=== PATIENT | female | born 2000 | race Caucasian/White ===

== ENCOUNTER 2023-02-02 05:32 | Outpatient (CLI) | payer OTHER ==
[~2023-02-02] VITALS: Ht 160 cm; Wt 81.8 kg
[2023-02-02] MEDS ORDERED: LAMO200T5 PO (11:57)
[2023-02-02] MEDS ORDERED: HYDR-700 PO (11:57)
[2023-02-02] MEDS ORDERED: SERT-414 PO (11:57)
[2023-02-09] MEDS ORDERED: IBUP-1773 PO (10:01)
[2023-02-09] MEDS ORDERED: ACHD5005 PO (10:01)
== END 2023-02-02 12:30 ==
LOC: PREOP 05:32
PROVIDERS: ATTEND Obstetrics & Gynecology
DX: Z01.818 Encounter for other preprocedural examination (principal)

== ENCOUNTER 2023-02-09 08:38 | Day surgery (SDC) | payer OTHER ==
[~2023-02-09] VITALS: Ht 160 cm; Wt 81.8 kg
[2023-02-09] VITALS (10 sets, daily range): BP systolic 110–127; BP diastolic 64–88
[~2023-02-09 08:38] MED LIST: HYDR-700 PO; LAMO200T5 PO; SERT-414 PO
[2023-02-09] MEDS ORDERED: NEOSTIGMINE (BLOXIVERZ ) 1 MG/1ML 10 ML VIAL ONE (09:19)
[2023-02-09] MEDS ORDERED: proPOfol 200 MG/20 ML (DIPRIVAN) VIAL IV ONE (09:19)
[2023-02-09] MEDS ORDERED: GLYCOPYRROLATE 0.2 MG/ML (ROBINUL) 2 ML VIAL ONE (09:19)
[2023-02-09] MEDS ORDERED: fentaNYL INJ 100 MCG/2 ML AMP ONE (09:19)
[2023-02-09] MEDS ORDERED: ROCURONIUM 50 MG/5 ML (ZEMURON) VIAL IV ONE (09:19)
[2023-02-09] MEDS ORDERED: LIDOCAINE PF 2% 5 ML (XYLOCAINE) VIAL ONE (09:19)
[2023-02-09] MEDS ORDERED: MIDAZOLAM 2 MG/2 ML (VERSED) VIAL ONE (09:19)
[2023-02-09] MEDS ORDERED: ONDANSETRON 4 MG/2 ML (SDV) Z0FRAN ONE (09:19)
[2023-02-09] MEDS ORDERED: MIDAZOLAM 2 MG/2 ML (VERSED) VIAL IV ONE (09:30)
[2023-02-09] MEDS ORDERED: METHYLENE BLUE 0.5% (PROVAYBLUE) 50 mg/10 ml vial IV ONE ×2 (09:36→10:43)
[2023-02-09] MEDS ORDERED: BUPIVACAINE 0.25% 30 ML (SENSORCAINE) VIAL ONE (09:36)
[2023-02-09 09:45] LABS: BASOPHILS # (AUTO) 0.1 10^3/uL (0.0-0.1); BASOPHILS % (AUTO) 1 % (0-10); EOSINOPHILS # (AUTO) 0.2 10^3/uL (0.0-0.3); EOSINOPHILS % (AUTO) 3 % (0-10); HEMATOCRIT 41 % (35-52); HEMOGLOBIN 13.6 g/dL (11.5-16.0); LYMPHOCYTES % (AUTO) 31 % (12-44); MEAN CORPUSCULAR HEMOGLOBIN 28 pg (25-34); MEAN CORPUSCULAR HGB CONC 33 g/dL (32-36); MEAN CORPUSCULAR VOLUME 84 fL (80-99); MEAN PLATELET VOLUME 10.7 fL (9.0-12.2); MONOCYTES # (AUTO) 0.4 10^3/uL (0.0-1.0); MONOCYTES % (AUTO) 6 % (0-12); NEUTROPHILS # (AUTO) 3.7 10^3/uL (1.8-7.8); NEUTROPHILS % (AUTO) 58 % (42-75); PLATELET COUNT 276 10^3/uL (130-400); WHITE BLOOD COUNT 6.4 10^3/uL (4.3-11.0)
[2023-02-09] MEDS: LACTATED RINGERS 1,000 ML IV PRN ×2 (09:52→10:39)
--- NOTE | 2023-02-09 09:58 | History & Physical-Surgical ---
HPO-Surgical History of Present Illness Chief Complaint: Lack of periods, painful heavy periods, CPP, Dysmenorrhea Diagnosis/Surgical Indication: SECONDARY AMEONRRHEA, CHRONIC PELVIC PAIN, DYSPAREUNIA Date of Surgery: Feb 09, 2023 Allergies and Home Medications Allergies Coded Allergies: No Known Drug Allergies (Unverified , 02/02/23) Patient Home Medication List Home Medication List Reviewed: Yes Hydroxyzine HCl (Hydroxyzine HCl) 25 Mg Tablet, 25 MG PO NEEDED, (Reported) Entered as Reported by: Tg Forde on 02/02/23 1157 Lamotrigine (Lamotrigine) 200 Mg Tablet, 200 MG PO DAILY, (Reported) Entered as Reported by: Tg Forde on 02/02/23 1157 Sertraline HCl (Sertraline HCl) 100 Mg Tablet, 100 MG PO DAILY, (Reported) Entered as Reported by: Tg Forde on 02/02/23 1157 Past Xmuxhbw-Mtuxuz-Vtsgkb Hx Patient Social History Alcohol Beverage of Choice: Other Drug of Choice: MARIJUANA 2nd Hand Smoke Exposure: Yes Recent Hopitalizations: No Immunizations Up To Date Tetanus Booster (TDap): Less than 5yrs Seasonal Allergies Seasonal Allergies: Yes Surgeries Adenoidectomy, Nose, Tonsillectomy Respiratory No Cardiovascular No Neurological No Reproductive System Sexually Transmitted Disease: No Genitourinary No Gastrointestinal No Musculoskeletal No Endocrine History of Endocrine Disorders: No HEENT History of HEENT Disorders: Yes HEENT Disorders: Tonsilitis Loss of Vision: Denies Hearing Impairment: Denies Cancer No Psychosocial History of Psychiatric Problem: Yes Behavioral Health Disorders: Anxiety, Depression Integumentary History of Skin or Integumenta: No Blood Transfusions History of Blood Disorders: No Adverse Reaction to a Blood Tr: No Exam Vital Signs Capillary Refill : Labs Laboratory Tests Test 02/09/23 09:20 Range/Units White Blood Count 6.4 4.3-11.0 10^3/uL Red Blood Count 4.92 3.80-5.11 10^6/uL Hemoglobin 13.6 11.5-16.0 g/dL Hematocrit 41 35-52 % Mean Corpuscular Volume 84 80-99 fL Mean Corpuscular Hemoglobin 28 25-34 pg Mean Corpuscular Hemoglobin Concent 33 32-36 g/dL Red Cell Distribution Width 14.4 10.0-14.5 % Platelet Count 276 130-400 10^3/uL Mean Platelet Volume 10.7 9.0-12.2 fL Immature Granulocyte % (Auto) 0 % Neutrophils (%) (Auto) 58 42-75 % Lymphocytes (%) (Auto) 31 12-44 % Monocytes (%) (Auto) 6 0-12 % Eosinophils (%) (Auto) 3 0-10 % Basophils (%) (Auto) 1 0-10 % Neutrophils # (Auto) 3.7 1.8-7.8 10^3/uL Lymphocytes # (Auto) 2.0 1.0-4.0 10^3/uL Monocytes # (Auto) 0.4 0.0-1.0 10^3/uL Eosinophils # (Auto) 0.2 0.0-0.3 10^3/uL Basophils # (Auto) 0.1 0.0-0.1 10^3/uL Immature Granulocyte # (Auto) 0.0 0.0-0.1 10^3/uL General Appearance: Alert, Oriented X3 HEENT: Atraumatic Respiratory: Clear to Auscultation Cardiovascular: Regular Rate Psych/Mental Status: Mental Status NL Assessment/Plan Assessment and Plan Diagnosis: CPP Dysmenorrhea Secondary amenorrhea Dysparuenia P: D and C, Diagnostic laparoscopy and chromotubation Admission Diagnosis Admission Status: Other (Same Day Surgery) CJ MOSS DO Feb 09, 2023 09:58
[2023-02-09] MEDS ORDERED: HYDROcodone/APAP 5 MG/325 MG (LORTAB) TAB PO PRN (10:00)
[2023-02-09] MEDS ORDERED: D5 LR IV SOLUTION 1,000 ML IV SCH (10:00)
[2023-02-09] MEDS ORDERED: KETOROLAC 30 MG/ML VIAL IVP ONE (10:00)
[2023-02-09] MEDS ORDERED: ONDANSETRON 4 MG/2 ML (SDV) Z0FRAN IVP PRN ×2 (10:00→11:15)
--- NOTE | 2023-02-09 10:00 | Discharge Inst-Women's Service ---
Discharge Inst-Women's Serv Depart Medication/Instructions New, Converted or Re-Newed RX: Transmitted to Pharmacy Problems Reviewed?: Yes Consults/Follow Up Additional Follow Up: Yes Orders/Referrals Dr. Sears in 7-10 days Activity Activity: Activity as Tolerated Driving Instructions: No Driving for 1 Week NO SMOKING: NO SMOKING Nothing Inside Vagina: No Douching, No [place], No Tampons Diet Discharge Diet: No Restrictions Symptoms to Report to : Bleeding Excessive, Pain Increased, Fever Over 101 Degrees F, Vaginal Bleeding Increase, Questions/Concerns For Any Problems or Questions: Contact Your Physician Skin/Wound Care Infection Signs and Symptoms: Increased Redness, Foul Odor of Wound, Increased Drainage, Skin Itchy or Has a Rash, Increased Swelling, Temperature Above 101 F Operative Area Clean and Dry: Keep Incision Clean/Dry Stitches/Alfred/Dermabond: Dermabond, Care of Stitches Bathing Instructions: CJ Steele DO Feb 09, 2023 10:00
[2023-02-09] MEDS ORDERED: ACHD5005 PO (10:01)
[2023-02-09] MEDS ORDERED: IBUP-1773 PO (10:01)
[2023-02-09] MEDS ORDERED: BUPIVACAINE 0.25% 30 ML (SENSORCAINE) VIAL INJ ONE (10:42)
[2023-02-09] MEDS ORDERED: KETOROLAC 30 MG/ML VIAL ONE (10:51)
[2023-02-09] MEDS ORDERED: SEVOFLURANE (ULTANE) 15 ML INHAL SOLN ONE (10:52)
[2023-02-09] MEDS ORDERED: HYDROmorphone 2 MG/ML VIAL (DILAUDID) IV ONE (11:15)
[2023-02-09] MEDS ORDERED: morphine INJ 10 MG/ML 1ML (SYR OR VIAL) IVP ONE (11:15)
--- NOTE | 2023-02-09 13:00 | Anesthesia-General Post-Op ---
General Patient Condition Mental Status/LOC: Same as Preop Cardiovascular: Satisfactory Nausea/Vomiting: Absent Respiratory: Satisfactory Pain: Controlled Complications: Absent Post Op Complications Complications None Follow Up Care/Instructions Patient Instructions None needed. Anesthesia/Patient Condition Patient Condition Patient is doing well, no complaints, stable vital signs, no apparent adverse anesthesia problems. No complications reported per nursing. RUDDY HUERTA DO Feb 09, 2023 13:00
--- NOTE | 2023-02-09 17:17 | OPERATIVE REPORT ---
DATE OF SERVICE: 02/09/2023 PREOPERATIVE DIAGNOSES: 1. A 22-year-old female with secondary amenorrhea. 2. Menorrhagia. 3. Chronic pelvic pain. 4. Dyspareunia. POSTOPERATIVE DIAGNOSES: 1. A 22-year-old female with secondary amenorrhea. 2. Menorrhagia. 3. Chronic pelvic pain. 4. Dyspareunia. PROCEDURE: D and C, diagnostic laparoscopy and chromotubation. SURGEON: Cj Moss DO ANESTHESIA: General endotracheal. ESTIMATED BLOOD LOSS: Minimal. URINE OUTPUT: 100 mL clear at the end of the procedure. FLUIDS: 1100 mL lactated Ringer's solution. FINDINGS: Grossly normal-appearing external female genitalia. Grossly normal appearing uterus, bilateral fallopian tubes and ovaries with bilateral patent tubes on chromotubation. SPECIMEN SENT: Endometrial curettings. INDICATIONS FOR PROCEDURE: This 22-year-old female, was a patient who had sought care in my office for ongoing issues with absence of menses that could easily be stimulated by Provera; however, without stimulation, the patient did not have menses. When she did stimulation with Provera, she had heavy menses. The patient also reported chronic pelvic pain, pain with periods and pain with intercourse. She had concerns for underlying endometriosis and concerns for her ongoing fertility. I discussed with the patient proceeding with D and C and a diagnostic laparoscopy with chromotubation. Risks of procedure discussed with the patient in detail. After all of her questions were answered, she was agreeable to proceed. Consent was obtained. The patient was taken to the operating room. OPERATIVE REPORT IN DETAIL: Once in the operating room, anesthesia was found to be adequate, was placed in dorsal lithotomy position, prepped and draped in normal sterile fashion. A timeout was performed. A Pulido catheter was placed using sterile technique. A weighted speculum inserted to the patient's vagina. Right angle retractor was utilized. Cervix was grasped at 12 o'clock position using a long Allis clamp. I then performed a paracervical block at 3 and 9 o'clock positions on the cervix. Care was taken to aspirate for injecting, 5 mL of 0.25% Marcaine were injected into each site. I then gently sound the cavity depth, was found to be 8 cm. I then gently dilated cervix using Hanks dilators to maximum dilatation of 8 mm, at which point I performed a gentle curettage using an endometrial curette. Second elongated tissue was collected consistent with a potential endometrial polyp formation. This is all sent as endometrial curetting. I then placed a Kronner uterine manipulator to a depth of 8 cm deploying the balloon within the uterus. I removed all the other instruments from the patient's vagina, performed change of gloves. I turned my attention to the abdomen where subcostally at the midclavicular line, I introduced the Veress needle through the skin until intraperitoneal placement was confirmed using saline drop test. An opening pressure of 5 mmHg was noted. I proceeded with CO2 insufflation to maximum pressure of 15 mmHg, at which point make a 5 mm infraumbilical incision and directed blunt laparoscopic trocar through the incision to ensure placement was confirmed using the laparoscope. There was no evidence of damage from entry site. A brief scan of the upper abdominal anatomy appears to be grossly normal. There was no evidence of damage upon the Veress entry site. I then had the patient placed in steep Trendelenburg after the Veress was removed and I am able to visualize all my pelvic anatomy as defined in my findings above. There is no evidence of endometriosis. All serosal surfaces are identified. The peritoneal surfaces identified, I cannot grossly identify any signs of endometriosis. I then performed a chromotubation using methylene blue and there was bilateral spillage from both distal ampullary portions of fallopian tube into the posterior cul-de-sac. This is then irrigated it out using suction irrigation. I then released insufflation and removed the infraumbilical trocar under direct visualization of laparoscope after introduced 10 mL of 0.25% Marcaine in the peritoneal cavity for postoperative pain management. Then removed this trocar as well. The skin reapproximated using Dermabond and Band-Aids applied to the incisions. Pulido catheter was removed. Kronner uterine manipulator was removed at the end of procedure. The patient tolerated the procedure well and was taken to recovery area in stable condition. Lap and sponge counts were correct at the end of the procedure. Instrument counts correct as well. Job ID: [id number] DocumentID: [id number] Dictated Date: 02/09/2023 12:24:51 Marble Helper Date: 02/09/2023 17:15:00 Dictated By: CJ MOSS DO
== END 2023-02-09 13:02 | disposition home or self-care (01) ==
LOC: SDC 08:38
PROVIDERS: ATTEND Obstetrics & Gynecology
DX: N91.1 Secondary amenorrhea (principal); N92.0 Excessive and frequent menstruation with regular cycle; N94.10 Unspecified dyspareunia; N94.6 Dysmenorrhea, unspecified; G89.29 Other chronic pain; N85.8 Other specified noninflammatory disorders of uterus
CPT/HCPCS: 36415; 84703; 85025; 86850; 86900; 86901; 87081